=== PATIENT | male | born 1935 | race Caucasian/White ===

== ENCOUNTER 2016-10-05 18:29 | Inpatient (IN) | payer MEDICARE, OTHER ==
[~2016-10-05] VITALS: Ht 167.6 cm; Wt 74.4 kg
[2016-10-05] MEDS ORDERED: METOCLOPRAMIDE HCL 10 MG/2 ML VIAL IV ONE (19:00)
[2016-10-05] MEDS ORDERED: IV NS 0.9% 1,000 ML BAG IV ONE (19:00)
[2016-10-05] MEDS ORDERED: IV NS 0.9% 1,000 ML ONE ×2 (19:22→22:36)
[2016-10-05] MEDS ORDERED: METOCLOPRAMIDE HCL 10 MG/2 ML VIAL ONE (19:22)
[2016-10-05] MEDS ORDERED: IV SET PRIMARY 1 EA INFUS.SET MC ONE ×2 (19:22→20:39)
[2016-10-05 19:36] LABS: BASOPHILS # (AUTO) 0.3 /CMM (0.0-0.2); BASOPHILS % (AUTO) 2.7 % (0.0-2.0); DIFF TOTAL % 100 %; EOSINOPHILS # (AUTO) 0.1 /CMM (0.0-0.7); EOSINOPHILS % (AUTO) 0.8 % (0.0-6.0); HEMATOCRIT 35 % (39-51); HEMOGLOBIN 12.2 g/dL (13.5-17.5); LYMPHOCYTES # (AUTO) 1.1 /CMM (0.8-4.8); LYMPHOCYTES % (AUTO) 11.2 % (20.0-44.0); MEAN CORPUSCULAR HEMOGLOBIN 28 PG (26.0-33.0); MEAN CORPUSCULAR HGB CONC 34 g/dl (31.0-36.0); MEAN CORPUSCULAR VOLUME 82 fL (80-96); MONOCYTES # (AUTO) 0.7 /CMM (0.1-1.30); MONOCYTES % (AUTO) 7.3 % (2.0-12.0); NEUTROPHILS # (AUTO) 7.7 /CMM (1.8-8.9); PLATELET COUNT (AUTO) 214 /CMM (150-450); RED BLOOD CELL COUNT(AUTO) 4.34 MIL/uL (4.5-6.0); WHITE BLOOD COUNT (AUTO) 9.9 K/uL (4.3-11.0)
[2016-10-05 19:53] LABS: ALBUMIN 3.2 g/dL (3.4-5.0); BILIRUBIN,DIRECT 0.1 mg/dL (0.0-0.2); BILIRUBIN,TOTAL 0.8 mg/dL (0.2-1.0); CALCIUM, SERUM 9.1 mg/dL (8.5-10.1); CREATININE 1.1 mg/dL (0.6-1.3); INDIRECT BILIRUBIN 0.7 mg/dL (0.0-1.1); TOTAL PROTEIN, SERUM 6.1 g/dL (6.4-8.2)
[2016-10-05 19:55] LABS: TROPONIN I 0.14 ng/mL (0.00-0.056)
[2016-10-05 19:58] LABS: POTASSIUM 2.5 mmol/L (3.5-5.1)
[2016-10-05 20:10] LABS: INR 1.19 (0.87-1.13); PROTHROMBIN TIME 12.5 SECS (9.5-12.7)
[2016-10-05] MEDS ORDERED: IV NS 0.9% 250 ML IV ONE ×2 (20:39→21:32)
[2016-10-05] MEDS ORDERED: IV SET PRIMARY PUMP SET 1 EA INFUS.SET MC ONE (20:39)
[2016-10-05] MEDS ORDERED: POTASSIUM CL. PREMIX PERIPHER. 50 ML ONE (20:39)
[2016-10-05] MEDS: POTASSIUM CL. PREMIX PERIPHER. 50 ML IV SCH ×4 (20:48→23:56)
[2016-10-05 21:00] VITALS: BP 125/63
[2016-10-05] MEDS ORDERED: MAGNESIUM HYDROXIDE 30 ML UDC PO PRN (21:00)
[2016-10-05] MEDS ORDERED: ACETAMINOPHEN 325 MG TABLET PO PRN (21:00)
[2016-10-05] MEDS ORDERED: Z GUARD REMEDY 2 OZ OINT TP PRN (21:00)
[2016-10-05] MEDS ORDERED: MAG HYDROX/AL HYDROX/SIMETH 30 ML UDC PO PRN (21:00)
[2016-10-05] MEDS: ZOLPIDEM TARTRATE 5 MG TABLET PO PRN (21:43)
[2016-10-05] MEDS ORDERED: LORA1TAB PO (22:50)
[2016-10-05] MEDS ORDERED: AMLO2.5T PO (22:50)
[2016-10-05] MEDS ORDERED: LUBI8CAP PO (22:50)
[2016-10-05] MEDS ORDERED: OLME1TAB3 PO (22:50)
[2016-10-05] MEDS ORDERED: SOLI5TAB PO (22:50)
[2016-10-05] MEDS ORDERED: CIPR-263 PO (23:07)
[2016-10-05 23:38] VITALS: BP 125/53
[2016-10-06] VITALS (9 sets, daily range): BP systolic 129–167; BP diastolic 60–80
[2016-10-06] MEDS: POTASSIUM CL. PREMIX PERIPHER. 50 ML IV SCH ×2 (01:14→02:03)
[2016-10-06 07:48] LABS: BASOPHILS % (AUTO) 0.4 % (0.0-2.0); DIFF TOTAL % 100 %; EOSINOPHILS # (AUTO) 0.1 /CMM (0.0-0.7); EOSINOPHILS % (AUTO) 1.3 % (0.0-6.0); HEMATOCRIT 32 % (39-51); HEMOGLOBIN 11.1 g/dL (13.5-17.5); LYMPHOCYTES # (AUTO) 1.1 /CMM (0.8-4.8); LYMPHOCYTES % (AUTO) 18.8 % (20.0-44.0); MEAN CORPUSCULAR HEMOGLOBIN 28 PG (26.0-33.0); MEAN CORPUSCULAR HGB CONC 34 g/dl (31.0-36.0); MEAN CORPUSCULAR VOLUME 82 fL (80-96); MONOCYTES # (AUTO) 0.4 /CMM (0.1-1.30); NEUTROPHILS # (AUTO) 4.3 /CMM (1.8-8.9); NEUTROPHILS % (AUTO) 72.5 % (43.0-81.0); PLATELET COUNT (AUTO) 159 /CMM (150-450); RED BLOOD CELL COUNT(AUTO) 3.94 MIL/uL (4.5-6.0); WHITE BLOOD COUNT (AUTO) 5.9 K/uL (4.3-11.0)
[2016-10-06 08:02] LABS: CALCIUM, SERUM 8.3 mg/dL (8.5-10.1); CREATININE 0.8 mg/dL (0.6-1.3); PHOSPHORUS 2.7 mg/dL (2.5-4.9)
[2016-10-06 08:13] LABS: POTASSIUM 2.6 mmol/L (3.5-5.1)
[2016-10-06] MEDS ORDERED: DEXTROSE 50%-WATER 50 ML DISP.SYRIN IVP ONE (08:30)
[2016-10-06] MEDS ORDERED: DEXTROSE 50%-WATER 50 ML DISP.SYRIN ONE (08:38)
[2016-10-06] MEDS ORDERED: IV SET PRIMARY PUMP SET 1 EA INFUS.SET MC ONE (09:17)
[2016-10-06] MEDS: SOLIFENACIN SUCCINATE 5 MG TABLET PO SCH (09:21)
[2016-10-06] MEDS: LORAZEPAM 1 MG TABLET PO SCH ×3 (09:21→16:28)
[2016-10-06] MEDS: AMLODIPINE BESYLATE 2.5 MG TABLET PO SCH (09:21)
[2016-10-06] MEDS: CIPROFLOXACIN HCL 250 MG TABLET PO SCH ×2 (09:21→16:28)
[2016-10-06] MEDS ORDERED: POTASSIUM CHLORIDE 20 MEQ TAB.PRT.SR PO ONE (10:30)
[2016-10-06] MEDS: Potassium Chloride 20 MEQ in IV D5/0.45 NACL 1,000 ML IV PRN (11:11)
[2016-10-06] MEDS ORDERED: SECONDARY IV SET 1 EA INFUS.SET MC ONE (13:03)
[2016-10-06] MEDS: Magnesium 1GM/D5W 100ML PREMIX 100 ML IV SCH ×2 (13:25→14:59)
[2016-10-06] MEDS: hydrALAZINE HCL 10 MG TABLET PO PRN (15:01)
[2016-10-06] MEDS: HYDROCODONE/APAP 5/325MG 1 EACH TABLET PO PRN ×2 (16:32→20:33)
[2016-10-06] MEDS: ENOXAPARIN SODIUM 40 MG/0.4 ML DISP.SYRIN SQ SCH (20:36)
[2016-10-06] MEDS: ZOLPIDEM TARTRATE 5 MG TABLET PO PRN (23:57)
[2016-10-07] MEDS ORDERED: IV PREMIX D5 1/2NS + KCL 1,000 ML IV ONE (02:03)
[2016-10-07] MEDS: Potassium Chloride 20 MEQ in IV D5/0.45 NACL 1,000 ML IV PRN ×2 (02:14→13:24)
[2016-10-07 04:00] VITALS: BP 153/79
[2016-10-07 07:11] LABS: CALCIUM, SERUM 8.6 mg/dL (8.5-10.1); CREATININE 0.7 mg/dL (0.6-1.3); POTASSIUM 3.1 mmol/L (3.5-5.1)
[2016-10-07 08:00] VITALS: BP 152/71
[2016-10-07] MEDS: SOLIFENACIN SUCCINATE 5 MG TABLET PO SCH (08:29)
[2016-10-07] MEDS: LORAZEPAM 1 MG TABLET PO SCH ×3 (08:29→17:00)
[2016-10-07] MEDS: CIPROFLOXACIN HCL 250 MG TABLET PO SCH ×2 (08:29→19:43)
[2016-10-07] MEDS: AMLODIPINE BESYLATE 2.5 MG TABLET PO SCH (08:29)
[2016-10-07] MEDS: HYDROCODONE/APAP 5/325MG 1 EACH TABLET PO PRN ×4 (08:31→20:34)
[2016-10-07 12:00] VITALS: BP 160/78
[2016-10-07] MEDS ORDERED: SECONDARY IV SET 1 EA INFUS.SET MC ONE (12:00)
[2016-10-07] MEDS: Magnesium 1GM/D5W 100ML PREMIX 100 ML IV SCH ×2 (12:05→13:16)
[2016-10-07] MEDS: POTASSIUM CHLORIDE 20 MEQ TAB.PRT.SR PO SCH ×2 (12:05→13:16)
[2016-10-07 16:00] VITALS: BP 130/72
[2016-10-07] MEDS: ONDANSETRON HCL/PF 4 MG/2 ML VIAL IVP PRN (16:13)
[2016-10-07 20:00] VITALS: BP 163/78
[2016-10-07] MEDS: ENOXAPARIN SODIUM 40 MG/0.4 ML DISP.SYRIN SQ SCH (20:35)
[2016-10-07 22:00] VITALS: BP 163/78
[2016-10-07] MEDS: ZOLPIDEM TARTRATE 5 MG TABLET PO PRN (22:26)
[2016-10-08] VITALS (7 sets, daily range): BP systolic 141–171; BP diastolic 71–87
[2016-10-08] MEDS: Potassium Chloride 20 MEQ in IV D5/0.45 NACL 1,000 ML IV PRN ×2 (04:03→15:18)
[2016-10-08 08:41] LABS: CALCIUM, SERUM 8.9 mg/dL (8.5-10.1); CREATININE 0.6 mg/dL (0.6-1.3); POTASSIUM 2.9 mmol/L (3.5-5.1)
[2016-10-08] MEDS: LORAZEPAM 1 MG TABLET PO SCH ×3 (09:21→16:10)
[2016-10-08] MEDS: SOLIFENACIN SUCCINATE 5 MG TABLET PO SCH (09:21)
[2016-10-08] MEDS: AMLODIPINE BESYLATE 2.5 MG TABLET PO SCH (09:21)
[2016-10-08] MEDS: CIPROFLOXACIN HCL 250 MG TABLET PO SCH ×2 (09:24→16:10)
[2016-10-08] MEDS: HYDROCODONE/APAP 5/325MG 1 EACH TABLET PO PRN ×3 (10:47→19:45)
[2016-10-08] MEDS ORDERED: BISACODYL SUPP (10 MG) 10 MG/SUPP.RECT SUPP.RECT RC PRN (12:00)
[2016-10-08] MEDS: POLYETHYLENE GLYCOL 3350 17 GM POWD.PACK PO SCH ×2 (12:13→21:13)
[2016-10-08] MEDS: DOCUSATE SODIUM 100 MG CAPSULE PO SCH ×2 (12:13→16:10)
[2016-10-08] MEDS: Magnesium 1GM/D5W 100ML PREMIX 100 ML IV SCH ×4 (12:42→16:41)
[2016-10-08] MEDS ORDERED: POTASSIUM CHLORIDE 20 MEQ POWDER PACKET PO ONE (13:00)
[2016-10-08] MEDS ORDERED: SECONDARY IV SET 1 EA INFUS.SET MC ONE (15:18)
[2016-10-08] MEDS: POTASSIUM CL. PREMIX PERIPHER. 50 ML IV SCH ×4 (15:21→20:40)
[2016-10-08] MEDS: ENOXAPARIN SODIUM 40 MG/0.4 ML DISP.SYRIN SQ SCH (21:15)
[2016-10-08] MEDS: ZOLPIDEM TARTRATE 5 MG TABLET PO PRN (22:40)
[2016-10-09] VITALS (7 sets, daily range): BP systolic 116–148; BP diastolic 58–76
[2016-10-09 08:42] LABS: CALCIUM, SERUM 8.7 mg/dL (8.5-10.1); CREATININE 0.6 mg/dL (0.6-1.3); POTASSIUM 3.6 mmol/L (3.5-5.1)
[2016-10-09] MEDS ORDERED: LORAZEPAM 1 MG TABLET PO SCH (09:00)
[2016-10-09] MEDS: SOLIFENACIN SUCCINATE 5 MG TABLET PO SCH (09:35)
[2016-10-09] MEDS: CIPROFLOXACIN HCL 250 MG TABLET PO SCH ×2 (09:35→17:02)
[2016-10-09] MEDS: DOCUSATE SODIUM 100 MG CAPSULE PO SCH ×2 (09:35→16:55)
[2016-10-09] MEDS: HYDROCODONE/APAP 5/325MG 1 EACH TABLET PO PRN ×3 (09:36→22:03)
[2016-10-09] MEDS: AMLODIPINE BESYLATE 2.5 MG TABLET PO SCH (09:36)
[2016-10-09] MEDS: Potassium Chloride 20 MEQ in IV D5/0.45 NACL 1,000 ML IV PRN ×2 (10:07→20:36)
[2016-10-09] MEDS: HYDROMORPHONE 1 MG/1 ML DISP.SYRIN IV PRN ×2 (11:54→19:43)
[2016-10-09] MEDS: AMITIZA 24 MCG PO SCH ×2 (12:50→22:06)
[2016-10-09] MEDS: BENICAR HCT PO SCH (12:51)
[2016-10-09] MEDS: LORAZEPAM 1 MG TABLET PO SCH (22:00)
[2016-10-09] MEDS: POLYETHYLENE GLYCOL 3350 17 GM POWD.PACK PO SCH (22:03)
[2016-10-09] MEDS: ENOXAPARIN SODIUM 40 MG/0.4 ML DISP.SYRIN SQ SCH (22:15)
[2016-10-10] VITALS (7 sets, daily range): BP systolic 137–198; BP diastolic 55–94
[2016-10-10] MEDS: HYDROMORPHONE 1 MG/1 ML DISP.SYRIN IV PRN ×5 (00:05→20:21)
[2016-10-10 07:29] LABS: CALCIUM, SERUM 8.5 mg/dL (8.5-10.1); CREATININE 0.6 mg/dL (0.6-1.3); POTASSIUM 3.2 mmol/L (3.5-5.1)
[2016-10-10] MEDS: BENICAR HCT PO SCH (07:48)
[2016-10-10] MEDS: DOCUSATE SODIUM 100 MG CAPSULE PO SCH ×2 (07:48→17:44)
[2016-10-10] MEDS: Potassium Chloride 20 MEQ in IV D5/0.45 NACL 1,000 ML IV PRN ×2 (07:48→20:25)
[2016-10-10] MEDS: AMLODIPINE BESYLATE 2.5 MG TABLET PO SCH (07:48)
[2016-10-10] MEDS: AMITIZA 24 MCG PO SCH ×2 (07:48→17:44)
[2016-10-10] MEDS: SOLIFENACIN SUCCINATE 5 MG TABLET PO SCH (07:48)
[2016-10-10] MEDS: CIPROFLOXACIN HCL 250 MG TABLET PO SCH ×2 (07:49→17:44)
[2016-10-10] MEDS: ONDANSETRON HCL/PF 4 MG/2 ML VIAL IVP PRN ×2 (09:53→19:41)
[2016-10-10] MEDS: HYDROCODONE/APAP 5/325MG 1 EACH TABLET PO PRN ×3 (09:58→19:04)
[2016-10-10] MEDS ORDERED: POTASSIUM CHLORIDE 20 MEQ POWDER PACKET PO SCH (13:00)
[2016-10-10] MEDS ORDERED: SECONDARY IV SET 1 EA INFUS.SET MC ONE (15:31)
[2016-10-10] MEDS: Magnesium 1GM/D5W 100ML PREMIX 100 ML IV SCH ×2 (15:34→17:45)
[2016-10-10] MEDS: hydrALAZINE HCL 10 MG TABLET PO PRN (20:12)
[2016-10-10] MEDS: ENOXAPARIN SODIUM 40 MG/0.4 ML DISP.SYRIN SQ SCH (20:53)
[2016-10-10] MEDS: POLYETHYLENE GLYCOL 3350 17 GM POWD.PACK PO SCH (22:16)
[2016-10-10] MEDS: LORAZEPAM 1 MG TABLET PO SCH ×3 (22:16→23:19)
[2016-10-11] VITALS: BP 148/54
[2016-10-11] MEDS: HYDROMORPHONE 1 MG/1 ML DISP.SYRIN IV PRN ×4 (00:41→14:58)
[2016-10-11 04:00] VITALS: BP 149/71
[2016-10-11] MEDS: Potassium Chloride 20 MEQ in IV D5/0.45 NACL 1,000 ML IV PRN (06:07)
[2016-10-11 06:58] VITALS: BP 148/73
[2016-10-11 07:02] LABS: BASOPHILS % (AUTO) 0.7 % (0.0-2.0); DIFF TOTAL % 100 %; EOSINOPHILS # (AUTO) 0.1 /CMM (0.0-0.7); EOSINOPHILS % (AUTO) 3.3 % (0.0-6.0); HEMATOCRIT 30 % (39-51); HEMOGLOBIN 10.5 g/dL (13.5-17.5); LYMPHOCYTES # (AUTO) 1.1 /CMM (0.8-4.8); LYMPHOCYTES % (AUTO) 31.3 % (20.0-44.0); MEAN CORPUSCULAR HEMOGLOBIN 28 PG (26.0-33.0); MEAN CORPUSCULAR HGB CONC 35 g/dl (31.0-36.0); MEAN CORPUSCULAR VOLUME 81 fL (80-96); MONOCYTES # (AUTO) 0.3 /CMM (0.1-1.30); MONOCYTES % (AUTO) 9.3 % (2.0-12.0); NEUTROPHILS # (AUTO) 1.9 /CMM (1.8-8.9); NEUTROPHILS % (AUTO) 55.4 % (43.0-81.0); PLATELET COUNT (AUTO) 164 /CMM (150-450); RED BLOOD CELL COUNT(AUTO) 3.73 MIL/uL (4.5-6.0); WHITE BLOOD COUNT (AUTO) 3.4 K/uL (4.3-11.0)
[2016-10-11 08:00] VITALS: BP 148/73
[2016-10-11] MEDS: BENICAR HCT PO SCH (08:48)
[2016-10-11] MEDS: AMITIZA 24 MCG PO SCH ×2 (08:48→16:27)
[2016-10-11] MEDS: SOLIFENACIN SUCCINATE 5 MG TABLET PO SCH (08:49)
[2016-10-11] MEDS: CIPROFLOXACIN HCL 250 MG TABLET PO SCH ×2 (08:49→16:26)
[2016-10-11] MEDS: DOCUSATE SODIUM 100 MG CAPSULE PO SCH ×2 (08:49→16:27)
[2016-10-11] MEDS: AMLODIPINE BESYLATE 2.5 MG TABLET PO SCH (08:49)
[2016-10-11 09:37] LABS: CALCIUM, SERUM 8.5 mg/dL (8.5-10.1); CREATININE 0.7 mg/dL (0.6-1.3)
[2016-10-11 09:52] LABS: POTASSIUM 2.7 mmol/L (3.5-5.1)
[2016-10-11] MEDS: ONDANSETRON HCL/PF 4 MG/2 ML VIAL IVP PRN ×2 (10:44→16:27)
[2016-10-11] MEDS ORDERED: POTASSIUM CHLORIDE 20 MEQ POWDER PACKET PO ONE (11:30)
[2016-10-11 12:00] VITALS: BP 144/82
[2016-10-11 16:00] VITALS: BP 150/70
== END 2016-10-11 17:35 | disposition home or self-care (01) | DRG 917 ==
LOC: ER 18:30 → TELE 20:29 → MED 10-11 13:08
PROVIDERS: ADMIT Family Medicine; ATTEND Family Medicine
PROC: 05H633Z Insertion of Infusion Device into Left Subclavian Vein, Percutaneous Approach (ICD-10-PCS; principal; 2016-10-09)
DX: T50.991A Poisoning by other drugs, medicaments and biological substances, accidental (unintentional), initial encounter (principal); I21.4 Non-ST elevation (NSTEMI) myocardial infarction; N39.0 Urinary tract infection, site not specified; E44.1 Mild protein-calorie malnutrition; I31.3 Pericardial effusion (noninflammatory); F11.20 Opioid dependence, uncomplicated; R11.10 Vomiting, unspecified; Y92.009 Unspecified place in unspecified non-institutional (private) residence as the place of occurrence of the external cause; E87.6 Hypokalemia; D64.9 Anemia, unspecified; I10 Essential (primary) hypertension; N32.81 Overactive bladder; M19.90 Unspecified osteoarthritis, unspecified site; K59.00 Constipation, unspecified; E16.2 Hypoglycemia, unspecified; E83.42 Hypomagnesemia; G89.29 Other chronic pain; E88.09 Other disorders of plasma-protein metabolism, not elsewhere classified
CPT/HCPCS: 36415; 71010-TC; 80048-TC; 80061-TC; 80076-TC; 82962-TC; 83690-TC; 83735-TC; 84100-TC; 84484-TC; 85025-TC; 85730-TC; 87081-TC; 93307-TC; 97001-TC; 97110-TC; 97530-TC; A4606; J1170; J1650; J2405; J2765; J3475; J3480; J3490; J7030; J7050; Z7610